=== PATIENT | female | born 1980 | race Caucasian/White ===

== ENCOUNTER 2018-07-01 09:30 | Emergency (ER) | payer OTHER ==
[2018-07-01 09:51] VITALS: BP 127/70
--- NOTE | 2018-07-01 10:12 | UC ---
Throat Pain/Nasal Jacinto HPI - HPI Summary HPI Summary: sore throat x 3 days + fever, chills, body aches, no cough , no runny nose or nasal congestion - History of Current Complaint Chief Complaint: UCRespiratory Stated Complaint: ST/BI LAT EAR COMPLAINT/BODY ACHES Time Seen by Provider: 07/01/18 09:55 Hx Obtained From: Patient Hx Last Menstrual Period: 06/14/18 ?: No Onset/Duration: Gradual Onset Severity: Severe Pain Intensity: 9 Cough: None Associated Signs & Symptoms: Positive: Fever. Negative: Sinus Discomfort, Nasal Discharge, Vomiting, Rash - Allergies/Home Medications Allergies/Adverse Reactions: Allergies Allergy/AdvReac Type Severity Reaction Status Date / Time oxycodone Allergy Swelling Verified 07/01/18 09:45 Home Medications: Home Medications Citalopram TAB* [CeleXA TAB*] 20 mg PO DAILY 07/01/18 [History Confirmed ] PMH/Surg Hx/FS Hx/Imm Hx Previously Healthy: Yes - Surgical History Surgical History: Yes Surgery Procedure, Year, and Place: Breast Reduction, 2006, [facility] – [place] - Family History Known Family History: Positive: Hypertension - Social History Alcohol Use: None Substance Use Type: None Smoking Status (MU): Never Smoked Tobacco - Immunization History Most Recent Influenza Vaccination: Current for Review of Systems Constitutional: Fever, Chills Skin: Negative Eyes: Negative ENT: Sore Throat Respiratory: Negative Cardiovascular: Negative Musculoskeletal: Myalgia Is Patient Immunocompromised?: No All Other Systems Reviewed And Are Negative: Yes Physical Exam Triage Information Reviewed: Yes Appearance: Pain Distress, Obese Vital Signs: Initial Vital Signs Temp 97.5 F 07/01/18 09:47 Pulse 102 07/01/18 09:47 Resp 16 07/01/18 09:47 BP 127/70 07/01/18 09:47 Pulse Ox 100 07/01/18 09:47 Vital Signs Reviewed: Yes Eyes: Positive: Conjunctiva Clear ENT: Positive: Normal ENT inspection, Hearing grossly normal, Pharyngeal erythema, Tonsillar swelling, Tonsillar exudate. Negative: Nasal congestion, Nasal drainage, TMs normal Neck exam: Normal Neck: Positive: Supple, Enlarged Nodes @ Respiratory: Positive: Chest non-tender, Lungs clear, Normal breath sounds Cardiovascular: Positive: RRR, No Murmur, Pulses Normal Skin Exam: Normal Throat Pain/Nasal Course/Dx - Differential Dx/Diagnosis Provider Diagnoses: strep pharyngitis Discharge - Sign-Out/Discharge Documenting (check all that apply): Patient Departure All imaging exams completed and their final reports reviewed: No Studies - Discharge Plan Condition: Stable Disposition: HOME Prescriptions: Amoxicillin PO (*) [Amoxicillin 875 MG (*)] 875 mg PO BID #20 tab Patient Education Materials: Strep Throat (ED) Forms: *Work Release Referrals: Tavon Ayon MD [Primary Care Provider] - If Needed - Billing Disposition and Condition Condition: STABLE Disposition: Home
== END 2018-07-01 10:16 | disposition home or self-care (01) ==
LOC: UCCORT 09:30
DX: J02.0 Streptococcal pharyngitis (principal); Z88.5 Allergy status to narcotic agent
CPT/HCPCS: 87651; 99212; G0463

== ENCOUNTER 2018-08-17 19:52 | Emergency (ER) | payer OTHER ==
[2018-08-17 20:19] VITALS: BP 121/79
[2018-08-17] MEDS ORDERED: Phenazopyridine TAB* 100 MG PO ONE (20:35)
[2018-08-17] MEDS ORDERED: Nitrofurantoin Macrocrystals* 100 MG CAP PO ONE (20:35)
--- NOTE | 2018-08-17 20:38 | UC ---
Complaint Female HPI - HPI Summary HPI Summary: C/O urinary frequency, urgency, dysuria since yesterday. - History Of Current Complaint Stated Complaint: URINARY COMPLAINT Time Seen by Provider: 08/17/18 20:11 Hx Obtained From: Patient Hx Last Menstrual Period: 08/08/18 ?: No Onset/Duration: Sudden Onset, Lasting Days - 2, Still Present Timing: Constant Severity Initially: Mild Severity Currently: Moderate Pain Intensity: 4 Character: Burning Aggravating Factor(s): Urination Alleviating Factor(s): Nothing Associated Signs And Symptoms: Negative: Fever, Back Pain - Allergies/Home Medications Allergies/Adverse Reactions: Allergies Allergy/AdvReac Type Severity Reaction Status Date / Time oxycodone Allergy Swelling Verified 08/17/18 20:19 PMH/Surg Hx/FS Hx/Imm Hx Previously Healthy: Yes - Surgical History Surgical History: Yes Surgery Procedure, Year, and Place: Breast Reduction, 2006, - Family History Known Family History: Positive: Cardiac Disease, Hypertension - Social History Occupation: Employed Full-time Lives: With Family Alcohol Use: None Substance Use Type: None Smoking Status (MU): Never Smoked Tobacco - Immunization History Most Recent Influenza Vaccination: Current for Review of Systems All Other Systems Reviewed And Are Negative: Yes Genitourinary: Positive: Dysuria, Frequency, Urgency Is Patient Immunocompromised?: Yes Physical Exam Triage Information Reviewed: Yes Appearance: Well-Appearing, No Pain Distress, Well-Nourished Vital Signs: Initial Vital Signs Temp 97.7 F 08/17/18 20:16 Pulse 73 08/17/18 20:16 Resp 16 08/17/18 20:16 BP 121/79 08/17/18 20:16 Pulse Ox 100 08/17/18 20:16 Vital Signs Reviewed: Yes Eyes: Positive: Conjunctiva Clear Neck exam: Normal Respiratory Exam: Normal Cardiovascular Exam: Normal Abdomen Description: Positive: Nontender. Negative: CVA Tenderness (R), CVA Tenderness (L) Musculoskeletal Exam: Normal Neurological Exam: Normal Psychological Exam: Normal Skin Exam: Normal Complaint Female Dx - Differential Dx/Diagnosis Differential Diagnosis/HQI/PQRI: Renal Colic, Ureteral Stone, Urinary Tract Infection Provider Diagnosis: Cystitis Discharge - Sign-Out/Discharge Documenting (check all that apply): Patient Departure All imaging exams completed and their final reports reviewed: No Studies - Discharge Plan Condition: Stable Disposition: HOME Prescriptions: Nitrofurantoin Monohyd/M-Cryst [Macrobid 100 mg Capsule] 100 mg PO BID #10 cap Phenazopyridine 200 mg (NF) [Pyridium 200 MG tab *] 200 mg PO TID PRN #6 tab PRN Reason: UTI symptoms Patient Education Materials: Urinary Tract Infection in Women (ED), Phenazopyridine (By mouth), Nitrofurantoin Combination (By mouth) Referrals: Tavon Ayon MD [Primary Care Provider] - - Billing Disposition and Condition Condition: STABLE Disposition: Home
[2018-08-17] MEDS ORDERED: Nitrofurantoin Macrocrystals* 50 MG CAP PO ONE (20:39)
== END 2018-08-17 20:48 | disposition home or self-care (01) ==
LOC: UCCORT 19:52
DX: Z88.5 Allergy status to narcotic agent (principal); N30.90 Cystitis, unspecified without hematuria; B96.20 Unspecified Escherichia coli [E. coli] as the cause of diseases classified elsewhere
CPT/HCPCS: 81003; 87077; 87086; 87186; 99212; A9270-GY; G0463

== ENCOUNTER 2018-10-13 18:50 | Emergency (ER) | payer OTHER ==
[2018-10-13 19:39] VITALS: BP 124/82
--- NOTE | 2018-10-13 19:43 | UC ---
Complaint Female HPI - HPI Summary HPI Summary: 37 yo female presents with left flank pain for 1 month. She tells me that her pain is worse with movement. She has taken ibuprofen and applied heat with little relief. Recently she has noticed her urine seems to be more cloudy. She was taking to a friend who suggested to get checked for a UTI. She denies fever , abdominal pain, n/v, dysuria, hematuria, urinary frequency. No injury. - History Of Current Complaint Chief Complaint: UCGU Stated Complaint: URINARY COMPLAINT Time Seen by Provider: 10/13/18 19:43 Hx Obtained From: Patient Hx Last Menstrual Period: 09/29/18 Onset/Duration: Gradual Onset Timing: Constant Severity Initially: Moderate Severity Currently: Moderate Pain Intensity: 6 Pain Scale Used: 0-10 Numeric - Allergies/Home Medications Allergies/Adverse Reactions: Allergies Allergy/AdvReac Type Severity Reaction Status Date / Time oxycodone Allergy Swelling Verified 10/13/18 19:39 PMH/Surg Hx/FS Hx/Imm Hx Psychological History: Anxiety, Depression - Surgical History Surgical History: Yes Surgery Procedure, Year, and Place[place] [facility] [place] Family History Known Family History: Positive: Cardiac Disease, Hypertension - Social History Occupation: Employed Full-time Lives: With Family Alcohol Use: Occasionally Substance Use Type: None Smoking Status (MU): Never Smoked Tobacco - Immunization History Most Recent Influenza Vaccination: Current for Review of Systems All Other Systems Reviewed And Are Negative: Yes Constitutional: Positive: Negative Skin: Positive: Negative Respiratory: Positive: Negative Cardiovascular: Positive: Negative Gastrointestinal: Positive: Negative Genitourinary: Positive: Negative Neurovascular: Positive: Negative Musculoskeletal: Positive: Other: - Left flank pain Neurological: Positive: Negative Psychological: Positive: Negative Physical Exam - Summary Physical Exam Summary: GENERAL: NAD. WDWN. No pain distress. SKIN: No rashes, sores, lesions, or open wounds. NECK: Supple. FROM. Nontender. No lymphadenopathy. CHEST: CTAB. No r/r/w. No accessory muscle use. Breathing comfortably and in no distress. CV: RRR. Without m/r/g. Pulses intact. Cap refill <2seconds MSK: TTP over LEFT lumbar paraspinal muscles. Pain with flexion and extension of spine. Positive SLR left for low back pain without radiation. Strength 5/5 B/ L LEs including dorsiflexion and plantar flexion. FROM B/L LEs. ABDOMEN: Soft. NTTP. No distention or guarding. No CVA tenderness. Bowel sounds present NEURO: Alert. CN II-XII grossly intact. Sensations intact B/L LEs L3-S1. PSYCH: Age appropriate behavior. Vital Signs: Initial Vital Signs Temp 98.0 F 10/13/18 19:35 Pulse 69 10/13/18 19:35 Resp 18 10/13/18 19:35 BP 124/82 10/13/18 19:35 Pulse Ox 99 10/13/18 19:35 Laboratory Tests 10/13/18 20:00 POC Urine Color Yellow POC Urine Clarity Clear POC Urine pH 6.5 POC Ur Specif [place] 1.015 POC Urine Protein Negative POC Ur Glucose (UA) Negative POC Urine Ketones Negative POC Urine Blood Trace-intact A POC Urine Nitrite Negative POC Urine Bilirubin Negative POC Urine Urobilinogen 0.2 POC U Leukocyte Esteras Negative Complaint Female Dx - Course Course Of Treatment: CT: IMPRESSION: No visible renal, ureteral or bladder calculi. UA with trace blood. Suspect muscle strain of low back. Advised to continue with rest and ibuprofen. F/u with PCP if symptoms do not improve. - Differential Dx/Diagnosis Provider Diagnosis: Low back strain Discharge - Sign-Out/Discharge Documenting (check all that apply): Patient Departure All imaging exams completed and their final reports reviewed: Yes - Discharge Plan Condition: Stable Disposition: HOME Patient Education Materials: Muscle Strain (DC) Referrals: Tavon Ayon MD [Primary Care Provider] - Additional Instructions: If you develop a fever, shortness of breath, chest pain, new or worsening symptoms - please call your PCP or go to the ED. Your imaging today did not show a kidney stone and your urine sample showed no sign of infection. I suspect this pain in your lower back is due to a muscle strain. - Billing Disposition and Condition Condition: STABLE Disposition: Home
== END 2018-10-13 21:24 | disposition home or self-care (01) ==
LOC: UCCORT 18:50
DX: S39.012A Strain of muscle, fascia and tendon of lower back, initial encounter (principal); Z88.5 Allergy status to narcotic agent; X58.XXXA Exposure to other specified factors, initial encounter; Y92.9 Unspecified place or not applicable
CPT/HCPCS: 74176; 81003; 99211; G0463

== ENCOUNTER 2019-01-01 15:17 | Emergency (ER) | payer OTHER ==
[2019-01-01 15:34] VITALS: BP 114/77
[2019-01-01 15:56] LABS: Influenza A Molecular NEGATIVE (Negative); Influenza B Molecular NEGATIVE (Negative)
--- NOTE | 2019-01-01 16:14 | UC ---
Throat Pain/Nasal Jacinto HPI - HPI Summary HPI Summary: Patient presents to urgent care with sore throat body aches that started last night. Patient denies fevers or chills. Patient states she took Motrin last night. Patient cannot take any analgesia treatment this morning. Patient did eat a turkey pot pie this morning without difficulty. Patient states she has painful swallowing and body aches. No rashes. No nausea vomiting. Patient states her daughter also has a slight sore throat. Patient's medications reviewed this visit. Pt is not immunocompromised - History of Current Complaint Chief Complaint: UCGeneralIllness Stated Complaint: SORE THROAT,BODY ACHES Time Seen by Provider: 01/01/19 16:12 Hx Obtained From: Patient Hx Last Menstrual Period: 12/23/18 ?: No Onset/Duration: Gradual Onset Severity: Moderate Pain Intensity: 8 Pain Scale Used: 0-10 Numeric - Allergies/Home Medications Allergies/Adverse Reactions: Allergies Allergy/AdvReac Type Severity Reaction Status Date / Time oxycodone Allergy Swelling Verified 01/01/19 15:34 PMH/Surg Hx/FS Hx/Imm Hx Previously Healthy: Yes - Surgical History Surgical History: Yes Surgery Procedure, Year, and Place: Breast Reduction, 2006, [facility] [place] - Family History Known Family History: Positive: Cardiac Disease, Hypertension, Non-Contributory - Social History Occupation: Employed Full-time - fast food fry cook Lives: With Family Alcohol Use: Occasionally Substance Use Type: None Smoking Status (MU): Never Smoked Tobacco - Immunization History Most Recent Influenza Vaccination: Current for Review of Systems All Other Systems Reviewed And Are Negative: Yes Constitutional: Positive: Fatigue ENT: Positive: Sore Throat Physical Exam - Summary Physical Exam Summary: Vital Signs Reviewed: Yes A+Ox3, tired appearing Eyes: Conjunctiva Clear, BHARGAVI. EOM intact and full ENT: Hearing grossly normal TM x 2 clear, mmoist, turbintaes wnl, uvula midline , no exudate, diffuse erythema posterior pharynx. Pt with flat, ulcerative appearing lesion on left posterior pillar and posterior soft palate. mild edema. No pnd Neck: Positive: Supple Respiratory: Positive: No respiratory distress, No accessory muscle use + CTA throughout no w/r Cardiovascular: RRR nl s1, s2 no m/r CBT <2 sec abd soft + BS nt/nd no guarding, no distension Musculoskeletal Exam: PAIGE x 4 without difficulty Strength Intact, ROM Intact Neurological: Positive: Alert, + sensation throughout Psychological: Positive: Normal Response To Family Skin: Positive: no rash, no ecchymosis Triage Information Reviewed: Yes Vital Signs: Initial Vital Signs Temp 98 F 01/01/19 15:30 Pulse 96 01/01/19 15:30 Resp 16 01/01/19 15:30 BP 114/77 01/01/19 15:30 Pulse Ox 98 01/01/19 15:30 Throat Pain/Nasal Course/Dx - Course Course Of Treatment: Patient presents to urgent care with body aches sore throat progressive over the last 24 hours. Patient took Motrin last night but nothing today. Patient has been able to eat and drink without drooling. On exam vital signs are stable. Patient appears tired. Patient with diffuse erythema and ulcer lesions noted on her posterior palate and tonsillar pillar. Uvula midline. No concern for abscess on exam. Suspect viral lesion. Patient's flu and strep are negative. Tried patient with viscous lidocaine. She did not like cannot tolerate gargling. Recommend Motrin/Tylenol. We'll write short course of prednisone. 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 Cold fluids, Motrin Tylenol pain. Return precautions. Patient states comfortable in agreement with plan. - Differential Dx/Diagnosis Provider Diagnosis: Pharyngitis Discharge - Sign-Out/Discharge Documenting (check all that apply): Patient Departure All imaging exams completed and their final reports reviewed: No Studies - Discharge Plan Condition: Stable Disposition: HOME Prescriptions: predniSONE TAB* [Deltasone 20 MG TAB*] 20 mg PO DAILY #13 tab Patient Education Materials: Pharyngitis (ED) Forms: *Work Release Referrals: Tavon Ayon MD [Primary Care Provider] - Additional Instructions: As noted, the provider who evaluated ou today noted a ulceration on the left side or your throat - consistent with a viral infection - as discussed these are often related to the herpes virus. - Okay to alternate ibuprofen (Advil, Motrin) 600mg and Tylenol 1000mg every 3 hours for pain. Take with food. Do NOT take for more than 4-5 days - Okay to gargle and spit warm salt water every 4 hours as needed for pain - Stay well hydrated - frequent sips of cold fluids will be soothing to your throat (popsicles, jello, ice cream, ice water). Avoid excess caffeine until your symptoms have resolved. -Throat infections are spread by oral secretions - do not share eating or drinking utensils until you symptoms are resolved. Clean items that may get your secretions such as cell phones, ipads, computer mouse, television remotes. Once you start to feel better, change your toothbrush and your pillowcase. - take prednisone as prescribed until gone - cepacol throat lozengers may be soothing to your throat - Okay to take over the counter cough and decongestant medication - Contact your doctor to arrange a follow-up appointment as needed - Billing Disposition and Condition Condition: STABLE Disposition: Home
[2019-01-01] MEDS ORDERED: Lidocaine 2% VISCOUS* 15 ML UDC PO ONE (16:21)
== END 2019-01-01 16:37 | disposition home or self-care (01) ==
LOC: UCCORT 15:17
DX: J02.9 Acute pharyngitis, unspecified (principal); Z88.5 Allergy status to narcotic agent
CPT/HCPCS: 87651; 99212; G0463

== ENCOUNTER 2019-10-06 17:39 | Emergency (ER) | payer OTHER ==
--- OUTSIDE RECORDS SUMMARY | 2019-10-06 19:35 | XMS REPORT | Continuity of Care Document ---
:1980 External Reference #:[id number] Author Name Sherri Monreal MD Address [address] [place] [address] Problems Active Problems Provider Date Cervical intraepithelial neoplasia grade 1 Onset: 01/11/2016 Headache Onset: 02/12/2002 Social History Type Date Description Comments Sex Unknown Tobacco Use Start: Unknown Patient has never smoked Smoking Status Reviewed: 09/03/19 Patient has never smoked Allergies, Adverse Reactions, Alerts Description No Known Drug Allergies Medications Active Medications SIG Qnty Indications Ordering Provider Date Citalopram take 1 tablet by 30tabs F43.23 Tavon Ayon MD 07/10/2019 Hydrobromide mouth once daily 20mg Tablets Claritin Oral Unknown 04/15/2017 10mg Tablets Vitamin B12 1 daily oral Unknown 1000mcg Tablets ER Vitamin D3 Complete 1 by mouth every Unknown day Tablets Medications Administered in Office Medication SIG Qnty Indications Ordering Provider Date Injection Medroxyprogesterone Unknown 03/25/2007 Acetate For Contraceptive Use Injection Injection Medroxyprogesterone Unknown 12/20/2006 Acetate For Contraceptive Use Injection Injection Medroxyprogesterone Unknown 09/19/2006 Acetate For Contraceptive Use Injection Injection Medroxyprogesterone Unknown 06/21/2006 Acetate For Contraceptive Use Injection Injection Medroxyprogesterone Unknown 03/22/2006 Acetate For Contraceptive Use Injection Injection Medroxyprogesterone Unknown 12/21/2005 Acetate For Contraceptive Use Injection Injection Medroxyprogesterone Unknown 09/21/2005 Acetate For Contraceptive Use Injection Injection Medroxyprogesterone Unknown 06/22/2005 Acetate For Contraceptive Use Injection Immunizations CPT Code Status Date Vaccine Lot # [id number] Given 07/10/2019 Flu < 65 years [id number] Given 05/29/2018 Flu < 65 years 15080 Given 06/26/2017 Flu < 65 years 98157 Given 06/02/2015 Flu < 65 years 60249 Given 02/06/2010 Tdap - Boostrix/Adacel Vital Signs Date Vital Result Comment 09/03/2019 10:03am BP Systolic 110 mmHg BP Diastolic 86 mmHg Height 61 inches 5'1" Weight 211.00 lb Heart Rate 79 /min Body Temperature 97.3 F O2 % BldC Oximetry 94 % BMI (Body Mass Index) 39.9 kg/m2 07/10/2019 3:21pm BP Systolic 110 mmHg BP Diastolic 60 mmHg Heart Rate 94 /min Body Temperature 96.9 F O2 % BldC Oximetry 98 % Results Test Acquired Date Facility Test Result H/L Range Note Laboratory test 09/03/2019 [facility] Glucose, 86 mg/dL finding ( )- - Fingerstick CF Lipid Panel 09/03/2019 [facility] Cholesterol 175 mg/dL ( )- - Total Mass/Vol Cholester/HDL Molecular Ratio 10.4 HDL Cholesterol QN Ser/PL [facility] 17 mg/dL LDL Cholesterol Mass/Vol 116 mg/dL Triglycerides QN Ser/PLS [facility] 212 mg/dL CBC Auto 07/18/2019 [facility] White Blood 6.3 10^3/uL Normal 3.5-10.[address] Count [place], [place] [id number] [phone] Red Blood Count 4.87 10^6/uL Normal 3.70-4.87 Hemoglobin 14.2 g/dL Normal 12.0-16.0 Hematocrit 41 % Normal 35-47 Mean Corpuscular Volume 85 fL Normal 80-97 Mean Corpuscular Hemoglobin 29 pg Normal 27-31 Mean Corpuscular HGB Conc 34 g/dL Normal 31-36 Red Cell Distribution Width 13 % Normal 10-15 Platelet Count 259 10^3/uL Normal 150-450 Mean Platelet Volume 6.6 fL Low 7.4-10.4 Abs Neutrophils 3.9 10^3/uL Normal 1.5-7.7 Abs Lymphocytes 1.6 10^3/uL Normal 1.0-4.8 Abs Monocytes 0.5 10^3/uL Normal 0-0.8 Abs Eosinophils 0.3 10^3/uL Normal 0-0.6 Abs Basophils 0.1 10^3/uL Normal 0-0.2 Abs Nucleated RBC 0.0 10^3/uL Granulocyte % 62.3 % Lymphocyte % 24.8 % Monocyte % 7.5 % Eosinophil % 4.6 % Basophil % 0.8 % Nucleated Red Blood Cells % 0.0 Comp Metabolic 07/18/2019 [facility] Sodium 140 mmol/L Normal 135-[address] [place] [address] [phone] Potassium 4.2 mmol/L Normal 3.5-5.0 Chloride 106 mmol/L Normal 101-111 Co2 Carbon Dioxide 28 mmol/L Normal 22-32 Anion Gap 6 mmol/L Normal 2-11 Glucose 84 mg/dL Normal 70-100 Blood Urea Nitrogen 15 mg/dL Normal 6-24 Creatinine 0.67 mg/dL Normal 0.51-0.95 BUN/Creatinine Ratio 22.4 High 8-20 Calcium 9.0 mg/dL Normal 8.6-10.3 Total Protein 6.4 g/dL Normal 6.4-8.9 Albumin 3.8 g/dL Normal 3.2-5.2 Globulin 2.6 g/dL Normal 2-4 Albumin/Globulin Ratio 1.5 Normal 1-3 Total Bilirubin 0.40 mg/dL Normal 0.2-1.0 Alkaline Phosphatase 72 U/L Normal 34-104 Alt 16 U/L Normal 7-52 Ast 16 U/L Normal 13-39 Egfr Non- 99.0 >60 Egfr 119.8 >60 1 Laboratory 07/18/2019 [facility] TSH (Thyroid 1.79 Normal 0.34 -5.60 test finding [address] [place]) mcIU/[place] [address] [phone] Vitamin B12 167 pg/mL Low 180-914 2 Vitamin D Total 25(Oh) 22.9 ng/mL Normal 20-50 3 Laboratory test 07/10/2019 [facility] TSH (Thyroid <pending> finding [address] [place]) [place] [address] [phone] Vitamin B12 <pending> Vitamin D Total 25(Oh) <pending> 1 Because ethnic data is not always readily available, this report includes an eGFR for both -Americans and non- Americans. The National Kidney Disease Education Program (NKDEP) does not endorse the use of the MDRD equation for patients that are not between the ages of 18 and 70, are , have extremes of body size, muscle mass, or nutritional status, or are non- or non-. According to the National Kidney Foundation, irrespective of diagnosis, the stage of the disease is based on the level of kidney function: Stage Description GFR(mL/min/1.73 m(2)) 1 Kidney damage with normal or decreased GFR 90 2 Kidney damage with mild decrease in GFR 60-89 3 Moderate decrease in GFR 30-59 4 Severe decrease in GFR 15-29 5 Kidney failure <15 (or dialysis) 2 Normal Range 180 to 914 Indeterminate Range 145 to 180 Deficient Range <145 3 Total 25-Hydroxyvitamin D2 and D3 (25-OH-VitD) <10 ng/mL (severe deficiency) 10-19 ng/mL (mild to moderate deficiency) 20-50 ng/mL (optimum levels) 51-80 ng/mL (increased risk of hypercalciuria) >80 ng/mL (toxicity possible) Procedures Description No Information Available Medical Devices Description No Information Available Encounters Type Date Location Provider Dx Diagnosis Office Visit 09/03/2019 [facility] Sherri Monreal MD Z00.00 Encntr for general 10:00a adult medical exam w/o abnormal findings Z13.1 Encounter for screening for diabetes mellitus Z13.220 Encounter for screening for lipoid disorders Office Visit 07/10/2019 3:15p [facility] B[facility]RBARA White R53.83 Other fatigue F43.23 Adjustment disorder with mixed anxiety and depressed mood Z23 Encounter for immunization Assessments Date Code Description Provider 09/03/2019 Z00.00 Encounter for general adult medical examination Sherri Monreal MD without abnormal findings 09/03/2019 Z13.1 Encounter for screening for diabetes mellitus Sherri Monreal MD 09/03/2019 Z13.220 Encounter for screening for lipoid disorders Sherri Monreal MD 07/10/2019 R53.83 Other fatigue B[place]RB[place] 07/10/2019 F43.23 Adjustment disorder with mixed anxiety and B[place]RBARA [place] depressed mood 07/10/2019 Z23 Encounter for immunization B[place]RBARA [place] Plan of Treatment No Information Available Functional Status Description No Information Available Mental Status Description No Information Available Referrals Description No Information Available
--- OUTSIDE RECORDS SUMMARY | 2019-10-06 19:35 | XMS REPORT | Continuity of Care Document ---
:1980 External Reference #:[id number] Author Name Sherri Monreal MD Address [address] [place] [address] Problems Active Problems Provider Date Cervical intraepithelial neoplasia grade 1 Onset: 01/11/2016 Headache Onset: 02/12/2002 Social History Type Date Description Comments Sex Unknown Tobacco Use Start: Unknown Patient has never smoked Smoking Status Reviewed: 09/03/19 Patient has never smoked Allergies, Adverse Reactions, Alerts Description No Known Drug Allergies Medications Active Medications SIG Qnty Indications Ordering Provider Date Citalopram take 1 tablet by 90tabs F43.23 Tavon Ayon MD 07/10/2019 Hydrobromide mouth daily 20mg Tablets Claritin Oral Unknown 04/15/2017 [...] CPT Code Status Date Vaccine Lot # [id number] Given 07/10/2019 Flu < 65 years [id number] Given 05/29/2018 Flu < 65 years [id number] Given 06/26/2017 Flu < 65 years [id number] Given 06/02/2015 Flu < 65 years 12825 Given 02/06/2010 Tdap - Boostrix/Adacel Vital Signs [...] Result H/L Range Note Laboratory test 09/03/2019 [facility] Glucose, 86 mg/dL finding ( )- - Fingerstick CF Lipid Panel 09/03/2019 [facility] Cholesterol 175 mg/dL ( )- - Total Mass/Vol Cholester/HDL Molecular Ratio 10.4 HDL Cholesterol QN Ser/PL [facility] 17 mg/dL LDL Cholesterol Mass/Vol 116 mg/dL Triglycerides QN Ser/PLS [facility] 212 mg/dL CBC Auto 07/18/2019 [facility] White Blood 6.3 10^3/uL Normal 3.5-10.[address] [place], [place] [id number] [phone] Red Blood Count 4.87 10^6/uL Normal 3.70-4.87 [...] Blood Cells % 0.0 Comp Metabolic 07/18/2019 [facility] Sodium 140 mmol/L Normal 135-[address] [place] [address] [phone] Potassium 4.2 mmol/L Normal 3.5-5.0 Chloride 106 [...] >60 Egfr 119.8 >60 1 Laboratory 07/18/2019 [facility] TSH (Thyroid 1.79 Normal 0.34 -5.60 test finding [address] Stim Horm) mcIU/[place] [address] [phone] Vitamin B12 167 pg/mL Low 180-914 2 Vitamin D Total 25(Oh) 22.9 ng/mL Normal 20-50 3 Laboratory test 07/10/2019 [facility] TSH (Thyroid <pending> finding [address] [place]) [place] [address] [phone] Vitamin B12 <pending> Vitamin D Total 25(Oh) [...] Location Provider Dx Diagnosis Office Visit 09/03/2019 [facility] Main Sherri Monreal MD Z00.00 Encntr for general 10:00a adult medical exam w/o abnormal findings Office Visit 07/10/2019 [facility] Main BÁRBARA Hudson R53.83 Other fatigue 3:15p F43.23 Adjustment disorder with mixed anxiety and depressed mood Z23 Encounter for immunization Assessments Date Code Description Provider 09/03/2019 Z00.00 Encounter for general adult medical examination Sherri Monreal MD without abnormal findings 07/10/2019 R53.83 Other fatigue BÁRBARA [place] 07/10/2019 F43.23 Adjustment disorder with mixed anxiety and BÁRBARA Hudson depressed mood 07/10/2019 Z23 Encounter for immunization BÁRBARA [place] Plan of Treatment No Information Available Functional Status Description No Information Available Mental Status Description No Information Available Referrals Description No Information Available
[2019-10-06 19:53] VITALS: BP 117/78
--- NOTE | 2019-10-06 19:58 | UC ---
Throat Pain/Nasal Jacinto HPI - HPI Summary HPI Summary: 38 yo with symptoms suggestive of sinus infection x 4 days, with headache and nasal congestion. x 3 days ago, she began having vertigo associated with position changes and head movement, but without fever, chills, and she has not had a recent fall or head injury. No past hx of vertigo. No cough. She does have some neck pain, which is not new for her. - History of Current Complaint Chief Complaint: UCGeneralIllness Stated Complaint: SINUS COMPLAINT Time Seen by Provider: 10/06/19 19:56 Hx Obtained From: Patient Hx Last Menstrual Period: 09/22/19 Onset/Duration: Sudden Onset, Lasting Days Severity: Moderate Pain Intensity: 0 Cough: None Associated Signs & Symptoms: Positive: Sinus Discomfort, Nasal Discharge. Negative: Fever, Vomiting - Epiglottits Risk Factors Epiglottis Risk Factors: Negative - Allergies/Home Medications Allergies/Adverse Reactions: Allergies Allergy/AdvReac Type Severity Reaction Status Date / Time oxycodone Allergy Swelling Verified 10/06/19 19:53 Home Medications: Home Medications Amitriptyline TAB* [Elavil TAB*] 10 mg PO BEDTIME 10/06/19 [History Confirmed ] Cholecalciferol (Vitamin D3) [Vitamin D3] 2,000 unit PO DAILY 10/06/19 [History Confirmed 10/06/19] Cyanocobalamin (Vitamin B-12) [Vitamin B-12] 1,000 mcg PO DAILY 10/06/19 [ History Confirmed 10/06/19] PMH/Surg Hx/FS Hx/Imm Hx Previously Healthy: Yes Psychological History: Anxiety - uses amitryptilline. - Surgical History Surgical History: Yes Surgery Procedure, Year, and Place: Breast Reduction, 2006, [facility] [place] - Family History Known Family History: Positive: Cardiac Disease, Hypertension, Other - mother has had vertigo - Social History Occupation: Employed Full-time Lives: With Family Alcohol Use: Occasionally Substance Use Type: None Smoking Status (MU): Never Smoked Tobacco - Immunization History Most Recent Influenza Vaccination: Current for Review of Systems All Other Systems Reviewed And Are Negative: Yes Constitutional: Positive: Fatigue Skin: Positive: Negative Eyes: Positive: Negative ENT: Positive: Nasal Discharge, Sinus Congestion Respiratory: Positive: Negative Cardiovascular: Positive: Negative Gastrointestinal: Positive: Nausea Genitourinary: Positive: Negative Motor: Positive: Negative Neurovascular: Positive: Negative Musculoskeletal: Positive: Negative Neurological: Negative: Headache, Weakness, Paresthesia, Numbness Psychological: Positive: Negative Is Patient Immunocompromised?: No Physical Exam Triage Information Reviewed: Yes Appearance: Well-Appearing, No Pain Distress Vital Signs: Initial Vital Signs Temp 98.7 F 10/06/19 19:49 Pulse 77 10/06/19 19:49 Resp 14 10/06/19 19:49 BP 117/78 10/06/19 19:49 Pulse Ox 100 10/06/19 19:49 Eye Exam: Other - JONATHAN, no nystagmus. Eyes: Positive: Conjunctiva Inflamed - mild bilateral injection without discharge. ENT: Positive: Pharyngeal erythema, TM dull. Negative: TM red, Tonsillar swelling, Tonsillar exudate Neck: Positive: Supple, Nontender, No Lymphadenopathy Respiratory: Positive: Lungs clear, Normal breath sounds, No respiratory distress Cardiovascular: Positive: RRR, No Murmur, Pulses Normal Musculoskeletal Exam: Normal Neurological Exam: Normal Psychological Exam: Normal Skin Exam: Normal Throat Pain/Nasal Course/Dx - Course Course Of Treatment: meclizine for vertigo; symptomatic treatment of viral URI. - Differential Dx/Diagnosis Differential Diagnosis/HQI/PQRI: Otitis Media, Sinusitis, URI Provider Diagnosis: URI (upper respiratory infection), Vertigo Discharge ED - Sign-Out/Discharge Documenting (check all that apply): Patient Departure All imaging exams completed and their final reports reviewed: No Studies - Discharge Plan Condition: Stable Disposition: HOME Prescriptions: Meclizine HCl 25 mg PO TID PRN #30 tab.chew PRN Reason: Vertigo Patient Education Materials: Vertigo (ED), Upper Respiratory Infection (ED) Forms: *Work Release Referrals: Tavon Ayon MD [Primary Care Provider] - Additional Instructions: the vertigo was most likely triggered by your respiratory illness. Rest at home, and use meclizine to control nausea and dizziness; this can cause mild sedation. Anticipate gradual improvement, and follow up with Dr. Ayon if symptoms persist. - Billing Disposition and Condition Condition: STABLE Disposition: Home
== END 2019-10-06 20:30 | disposition home or self-care (01) ==
LOC: UCCORT 17:39
DX: J06.9 Acute upper respiratory infection, unspecified (principal); R42 Dizziness and giddiness; F41.9 Anxiety disorder, unspecified; H57.89 Other specified disorders of eye and adnexa; R11.0 Nausea; Z79.899 Other long term (current) drug therapy; Z88.5 Allergy status to narcotic agent
CPT/HCPCS: 99212; G0463